=== PATIENT | male | born 1960 | race Two or more races ===

== ENCOUNTER 2018-11-21 10:44 | Inpatient (IN) | payer OTHER, MEDICAID ==
[~2018-11-21] VITALS: Ht 175.3 cm; Wt 99.8 kg
[2018-11-21] MEDS ORDERED: SODIUM CHLORIDE 0.9% 1,000 ML IV ONE ×2 (11:02→11:45)
[2018-11-21 11:33] LABS: BASOPHILS % 0.7 % (0.0-2.0); HEMATOCRIT. 37.6 % (42.0-52.0); HEMOGLOBIN. 12.7 g/dL (14.0-18.0); LYMPHOCYTES % 11.4 % (20.0-50.0); MEAN CORPUSCULAR HEMOGLOBIN 33.5 pg (28.0-32.0); MEAN CORPUSCULAR VOLUME 99.4 fL (80.0-94.0); MONOCYTES % 13.2 % (2.0-8.0); NEUTROPHILS % 74.7 % (40.0-76.0); PLATELET 289 x1000/uL (130-400); RED BLOOD CELL COUNT 3.78 mill/uL (4.7-6.1); RED CELL DISTRIBUTION WIDTH 14.2 % (11.6-14.6)
[2018-11-21 11:35] LABS: CHLORIDE 100 mEq/L (98-107)
[2018-11-21 16:00] LABS: CLARITY URINE CLEAR (CLEAR); COLOR URINE YELLOW (YELLOW); KETONES URINE 3+ (NEGATIVE); LEUKOCYTE ESTERASE URINE NEGATIVE (NEGATIVE); NITRITE URINE NEGATIVE (NEGATIVE); OCCULT BLOOD URINE TRACE (NEGATIVE); PROTEIN URINE NEGATIVE (NEGATIVE); SPECIFIC GRAVITY URINE 1.023 (1.005-1.030); UROBILINOGEN URINE 0.2 E.U./dL (0.2-1.0)
[2018-11-21 19:30] VITALS: BP 171/71
[2018-11-21] MEDS ORDERED: DOCUSATE SODIUM 100MG CAPSULE PO PRN (19:30)
[2018-11-21] MEDS ORDERED: ONDANSETRON HCL 4MG/2ML INJ IV PRN (19:30)
[2018-11-21] MEDS ORDERED: HYDROCODONE/ACETAMINOPHEN 5/325MG TABLET PO PRN (19:30)
[2018-11-21] MEDS ORDERED: ACETAMINOPHEN 325MG TABLET PO PRN (19:30)
[2018-11-21] MEDS ORDERED: CLONIDINE 0.1MG TABLET PO PRN (19:30)
[2018-11-21 20:00] VITALS: BP 157/73
[2018-11-21] MEDS ORDERED: DEXTROSE 50% WATER 50ML SYRINGE IV PRN (20:00)
[2018-11-21] MEDS: SODIUM CHLORIDE 0.9% 1,000 ML IV SCH (21:06)
[2018-11-21] MEDS: INSULIN LISPRO 100 UNITS/ML SUBCUT SCH (21:09)
[2018-11-21] MEDS: BLOOD SUGAR DIAGNOSTIC STRIP TEST SCH (21:09)
[2018-11-22] VITALS: BP 145/75
[2018-11-22 04:00] VITALS: BP 119/65
[2018-11-22 05:59] LABS: BASOPHILS % 0.3 % (0.0-2.0); EOSINOPHILS % 0.2 % (0.0-5.0); HEMATOCRIT. 38.1 % (42.0-52.0); HEMOGLOBIN. 12.8 g/dL (14.0-18.0); LYMPHOCYTES % 14.8 % (20.0-50.0); MEAN CORPUSCULAR HEMOGLOBIN 33.5 pg (28.0-32.0); MEAN CORPUSCULAR VOLUME 99.4 fL (80.0-94.0); NEUTROPHILS % 72.7 % (40.0-76.0); PLATELET 256 x1000/uL (130-400); RED BLOOD CELL COUNT 3.83 mill/uL (4.7-6.1); RED CELL DISTRIBUTION WIDTH 14.2 % (11.6-14.6)
[2018-11-22 06:23] LABS: CHLORIDE 108 mEq/L (98-107)
[2018-11-22] MEDS: INSULIN LISPRO 100 UNITS/ML SUBCUT SCH ×2 (06:31→12:08)
[2018-11-22 08:00] VITALS: BP 161/69
[2018-11-22] MEDS: SODIUM CHLORIDE 0.9% 1,000 ML IV SCH (08:41)
[2018-11-22] MEDS ORDERED: AMLODIPINE 10MG TABLET PO SCH (09:00)
[2018-11-22 11:31] VITALS: BP 147/74
[2018-11-22] MEDS: BLOOD SUGAR DIAGNOSTIC STRIP TEST SCH (11:44)
[2018-11-22] MEDS ORDERED: INSULIN GLARGINE UD 100 UNITS/ML SYR SUBCUT SCH (12:00)
== END 2018-11-22 16:20 | disposition home or self-care (01) | DRG 469 ==
LOC: ER 10:44 → 8WST 12:24 → EDBEDREQ 12:27 → EDBEDREQTM 12:27 → ENRESERV 18:05
PROVIDERS: ADMIT Hospitalist; ATTEND Hospitalist
DX: N17.9 Acute kidney failure, unspecified (principal); E43 Unspecified severe protein-calorie malnutrition; E11.65 Type 2 diabetes mellitus with hyperglycemia; Z79.4 Long term (current) use of insulin; Z68.32 Body mass index [BMI] 32.0-32.9, adult
CPT/HCPCS: 36415; 71045; 82962; 83880; 84484; 93005; 93970; 96360; 96361; 99285; J1815; J7030; J7040